=== PATIENT | female | born 2000 | race Two or more races ===

== ENCOUNTER 2019-10-16 06:29 | Inpatient (IN) | payer SELFPAY ==
[~2019-10-16] VITALS: Ht 172.7 cm; Wt 99.8 kg
[2019-10-16] MEDS ORDERED: LACT. RINGERS/OXYTOCIN 20UNITS 1,000 ML IV SCH (07:23)
[2019-10-16] MEDS ORDERED: LACTATED RINGER'S 1,000 ML IV SCH (07:23)
[2019-10-16] MEDS ORDERED: DERMOPLAST 60ML BOTTLE TOP PRN (07:30)
[2019-10-16] MEDS ORDERED: NALBUPHINE HCL 10 MG/1ml INJECTION IV PRN (07:30)
[2019-10-16] MEDS ORDERED: PHISODERM TOP SOLN 240ML BTL TOP PRN (07:30)
[2019-10-16] MEDS ORDERED: WITCH HAZEL-GLYCERIN PAD TOP PRN (07:30)
[2019-10-16] MEDS ORDERED: PHISODERM TOP SOLN 240ML BTL TOP ONE (07:48)
[2019-10-16] MEDS ORDERED: LACT. RINGERS/OXYTOCIN 20UNITS 1,000 ML IV ONE ×2 (07:48→12:46)
[2019-10-16] MEDS ORDERED: METHYLERGONOVINE MALEATE 0.2 MG/ML AMP IM ONE (07:48)
[2019-10-16] MEDS ORDERED: DERMOPLAST 60ML BOTTLE TOP ONE (07:48)
[2019-10-16] MEDS ORDERED: WITCH HAZEL-GLYCERIN PAD TOP ONE (07:48)
[2019-10-16] MEDS ORDERED: LIDOCAINE 2%HCL (LOCAL ANESTH.) INJ 20ML MDV ONE ×2 (07:48→08:44)
[2019-10-16] MEDS ORDERED: PENICILLIN G POT 5MIL/D5 50ML 50 ML IV ONE (08:03)
[2019-10-16 08:08] LABS: Basophils # (auto) 0.1 uL; Basophils % (auto) 0.4 % (0.0-2.0); Eosinophils # (auto) 0 uL; Eosinophils % (auto) 0.3 % (0.0-7.0); Hematocrit 32.7 % (36.0-46.0); Lymphocytes # (auto) 1.7 uL; Lymphocytes % (auto) 11.5 % (10.0-50.0); Mean Corpuscular Hemoglobin 28.3 pg (28.0-32.0); Mean Corpuscular Hgb Conc. 33.6 g/dL (32.0-36.0); Mean Corpuscular Volume 84.2 fL (80.0-100.0); Monocytes # (auto) 0.6 uL; Monocytes % (auto) 3.9 % (0.0-12.0); Neutrophils # (auto) 12.5 uL; Neutrophils % (auto) 83.9 % (37.0-80.0); Platelet Count (auto) 282 10^3/uL (140-450); Red Blood Cells 3.88 10^6/uL (4.0-5.20); White Blood Cell 14.9 10^3/uL (4.4-10.8)
[2019-10-16 08:22] LABS: Albumin 2.1 g/dL (3.4-5.0); Calcium 8.7 mg/dL (8.5-10.1); Potassium 3.9 mmol/L (3.5-5.1); Uric Acid 3.5 mg/dL (2.6-6.0)
[2019-10-16 08:23] LABS: INR 0.91 (0.9-1.15); Partial Thromboplastin Time 26.4 sec (23.64-32.05)
[2019-10-16 08:25] LABS: BUN/Creatinine Ratio 15.4; Bilirubin, Total 0.2 mg/dL (0.2-1.0); Total Protein 6.5 g/dL (6.4-8.2)
[2019-10-16] MEDS ORDERED: CARBOPROST TROMETHAMINE 250 MCG/1ML VIAL IM ONE ×2 (08:40→09:15)
[2019-10-16] MEDS: CARBOPROST TROMETHAMINE 250 MCG/1ML VIAL IM PRN ×2 (08:42→12:40)
[2019-10-16] MEDS ORDERED: ONDANSETRON HCL 4 MG/2 ML VIAL ONE (08:44)
[2019-10-16] MEDS: LIDOCAINE 2%HCL (LOCAL ANESTH.) INJ 20ML MDV ID PRN (08:45)
[2019-10-16 08:53] LABS: Urine Bacteria FEW /hpf (None Seen); Urine Blood TRACE /uL (Negative); Urine Specific Gravity 1.021 (1.001-1.035); Urine WBC 36 /hpf (0 - 5)
[2019-10-16 08:57] LABS: Alcohol, Urine < 3.0 mg/dL (0-5); Amphetamine Screen, Urine NEGATIVE (NEGATIVE); Barbiturate Scree,Urine NEGATIVE (NEGATIVE); Benzodiazephine Screen, Urine NEGATIVE (NEGATIVE); Cannabinoid Screen, Urine NEGATIVE (NEGATIVE); Cocaine Screen, Urine NEGATIVE (NEGATIVE); Opiate Scree,Urine NEGATIVE (NEGATIVE); Phencyclidine Screen, Urine NEGATIVE (NEGATIVE)
[2019-10-16] MEDS ORDERED: ACETAMINOPHEN 325 MG TAB PO PRN (09:15)
[2019-10-16] MEDS ORDERED: ONDANSETRON HCL 4 MG/2 ML VIAL IV PRN (09:15)
[2019-10-16] MEDS ORDERED: DIPHENOXYLATE W/ATROPINE 2.5 MG TAB PO PRN (09:15)
[2019-10-16] MEDS: IBUPROFEN 600 MG TAB PO PRN ×2 (09:46→22:09)
--- NOTE | 2019-10-16 10:15 | NUR ---
Ambulation: Patient OOB with standby assistance by RN. Patient ambulated to bathroom with steady gait. Patient unable to void at this time. Nai care teaching provided with returned demonstration by patient. Clean gown provided and bed linen changed. Patient ambulated back to bed with steady gait and no distress noted.
[2019-10-16 10:45] VITALS: BP 130/93
[2019-10-16] MEDS ORDERED: PENICILLIN G POTASSIUM 2,500,000 UNITS in D5W 5% 50 ML IV SCH (12:00)
--- NOTE | 2019-10-16 12:30 | NUR ---
Pt unable to void, straight cath done per dr aguayo with 300 cc urine output. orders received to start Pitocin, orders carried out.
[2019-10-16 15:00] VITALS: BP 136/74
[2019-10-16 19:00] VITALS: BP 125/84
[2019-10-16] MEDS ORDERED: TETANUS-DIPTH-ACEL PERTUSSIS 0.5ML SYRG IM ONE (21:30)
[2019-10-16] MEDS ORDERED: INFLUENZA QUAD 2019-2020 0.5ml SYRG IM ONE (21:30)
[2019-10-16 23:00] VITALS: BP 130/85
[2019-10-17 03:00] VITALS: BP 136/72
[2019-10-17 07:04] VITALS: BP 124/78
[2019-10-17 08:06] LABS: RPR Non Reactive (Non Reactive)
--- NOTE | 2019-10-17 08:57 | NUR ---
Social service consult completed by Ivette over phone
--- NOTE | 2019-10-17 09:23 | NUR ---
Discharge: Discharge instructions given as ordered. Pt encouraged to follow up with OPERATING COST CLERK as instructed. All questions and concerns addressed. Patient verbalized understanding. Medication reconciliation completed and copy given to patient. All required/requested vaccines given and copies of vaccinations given to patient. Patient encouraged to prepare to depart unit translated by .
--- NOTE | 2019-10-17 09:35 | NUR ---
Discharge: Patient taken to vehicle ambulating with all personal belongings, accompanied by staff and family member. No distress noted at time of departure, no adverse changes in status since initial assessment.
[2019-10-18 04:05] LABS: Rubella Antibodies, IgG <0.90 index (Immune >0.99)
--- NOTE | 2019-10-18 10:23 | NUR ---
special education paraeducator 10/17/19 I received a page from Meredith TORRE stating patient has a ss consult for no care. I spoke to patients Grzegorz who translated for us. Patient is alert and oriented 19 year old female. Per patient she had prenatel care in [place] with Dr Pineda. Per patient and Grzegorz patient has been here for about 10 weeks. Patient plans to return to [place] as soon as they can. Per Grzegorz they have all provisions for the baby. Parents are aware of the transfer of baby to [facility] for cleft pallet. Per patient and Grzegorz after surgery and when baby is stable to travel they will return to [place]. Meredith TORRE notified. Addendum: 10/19/19 at 1030 by Ivette JONES Amended: Links added.
== END 2019-10-17 09:35 | disposition home or self-care (01) | DRG 807 ==
LOC: LDRP 06:29 → OBSVTOIN 07:30 → LDRP 08:07
PROVIDERS: ADMIT Obstetrics & Gynecology; ATTEND Obstetrics & Gynecology
PROC: 10E0XZZ Delivery of Products of Conception, External Approach (ICD-10-PCS; principal; 2019-10-16)
PROC: 0KQM0ZZ Repair Perineum Muscle, Open Approach (ICD-10-PCS; 2019-10-16)
PROC: 0W8NXZZ Division of Female Perineum, External Approach (ICD-10-PCS; 2019-10-16)
PROC: 3E0234Z Introduction of Serum, Toxoid and Vaccine into Muscle, Percutaneous Approach (ICD-10-PCS; 2019-10-16)
PROC: 3E02340 Introduction of Influenza Vaccine into Muscle, Percutaneous Approach (ICD-10-PCS; 2019-10-16)
DX: O77.0 Labor and delivery complicated by meconium in amniotic fluid (principal); Z37.0 Single live birth; Z86.32 Personal history of gestational diabetes; Z3A.39 39 weeks gestation of pregnancy; Z23 Encounter for immunization; O70.1 Second degree perineal laceration during delivery
CPT/HCPCS: 36415; 59025; 59409; 80053; 80307; 81001; 81002; 84112; 84550; 85025; 85610; 85730; 86592; 86703; 86762; 86850; 86900; 86901; 87340; 90715; 96361; 96366; 96372; 96374; G0378; J2405; J2540; J2590; J7060